=== PATIENT | female | born 1960 | race Caucasian/White ===

== ENCOUNTER 2016-10-09 13:46 | Emergency (ER) | payer OTHER ==
[~2016-10-09] VITALS: Ht 170.2 cm; Wt 99.0 kg
[2016-10-09] MEDS ORDERED: RIZA10TA2 (13:55)
[2016-10-09] MEDS ORDERED: BUSP15TA47 (13:55)
[2016-10-09] MEDS ORDERED: TOPI50TA9 (13:55)
[2016-10-09] MEDS ORDERED: CITA40TA4 (13:55)
[2016-10-09] MEDS ORDERED: ONDA4TAB6 (13:55)
[2016-10-09] MEDS ORDERED: MAGN250T7 PO (13:55)
[2016-10-09] MEDS ORDERED: diphenhydrAMINE INJ 50MG/ML VIAL (J1200) IV STA (14:02)
[2016-10-09] MEDS ORDERED: PROMETHAZINE INJ 25 MG/ML VIAL (J2550) IV ONE (14:15)
[2016-10-09] MEDS ORDERED: KETOROLAC 30 MG/ML VIAL (J1885) IV ONE (14:15)
[2016-10-09] MEDS ORDERED: NS 1,000 ML IV ONE (14:15)
[2016-10-09 16:08] VITALS: BP 96/51
== END 2016-10-09 16:10 | disposition home or self-care (01) ==
LOC: M ED 13:46
DX: G43.909 Migraine, unspecified, not intractable, without status migrainosus (principal); F41.9 Anxiety disorder, unspecified; F32.9 Major depressive disorder, single episode, unspecified; Z79.899 Other long term (current) drug therapy; Z88.0 Allergy status to penicillin; Z88.2 Allergy status to sulfonamides
CPT/HCPCS: 96374; 96375; 99282; J1200; J1885

== ENCOUNTER 2016-12-02 18:14 | Emergency (ER) | payer OTHER ==
[~2016-12-02] VITALS: Ht 170.2 cm; Wt 98.2 kg
[2016-12-02 18:14] VITALS: BP 131/79
[~2016-12-02 18:14] MED LIST: BUSP15TA47; CITA40TA4; MAGN250T7 PO; ONDA4TAB6; RIZA10TA2; TOPI50TA9
== END 2016-12-02 18:33 | disposition left against medical advice (07) ==
LOC: M ED 18:14
DX: R51 Headache (principal); Z53.21 Procedure and treatment not carried out due to patient leaving prior to being seen by health care provider

== ENCOUNTER → 2017-12-28 | Outpatient (CLI) | payer OTHER ==
[2017-12-28 13:01] LABS: ERYTHROCYTE SEDIMENTATION RATE 25 mm/hr (0-30)
[2017-12-28 13:04] LABS: ALBUMIN 3.7 GM/DL (3.2-5.2); ALBUMIN/GLOBULIN RATIO 1.16 (1.00-1.93); ALKALINE PHOSPHATASE 105 U/L (45-117); ALT/SGPT 19 U/L (12-78); ANION GAP 5 MEQ/L (8-16); AST/SGOT 13 U/L (7-37); BILIRUBIN,TOTAL 0.2 MG/DL (0.2-1.0); BLOOD UREA NITROGEN 21 MG/DL (7-18); CALCIUM LEVEL 8.6 MG/DL (8.5-10.1); CARBON DIOXIDE LEVEL 28 MEQ/L (21-32); CHLORIDE LEVEL 109 MEQ/L (98-107); CREATININE FOR GFR 0.78 MG/DL (0.55-1.30); GLOMERULAR FILTRATION RATE > 60.0 (>51); GLUCOSE, FASTING 94 MG/DL (70-100); POTASSIUM SERUM 4.1 MEQ/L (3.5-5.1); RHEUMATOID FACTOR QUANT < 10.0 IU/ML (<15.0); SODIUM LEVEL 142 MEQ/L (136-145); TOTAL PROTEIN 6.9 GM/DL (6.4-8.2)
[2017-12-28 13:10] LABS: TOTAL 25(OH) VITAMIN D 13.9 NG/ML (30.0-100.0)
[2017-12-30 14:27] LABS: ANTINUCLEAR ANTIBODIES DIRECT Negative (Negative); TOPIRAMATE LEVEL 3.9 ug/mL (2.0-25.0)
== END ==
LOC: M LAB 11:55
DX: R51 Headache (principal)
CPT/HCPCS: 80053

== ENCOUNTER → 2018-01-12 | Outpatient (REF) | payer OTHER | LOC: M LAB REF 01-13 12:00 | DX: R31.9 Hematuria, unspecified (principal) ==

== ENCOUNTER 2019-04-05 10:48 | Emergency (ER) | payer OTHER ==
[~2019-04-05] VITALS: Ht 172.7 cm; Wt 101.9 kg
[2019-04-05] MEDS ORDERED: CYCL10TA PO (11:34)
[2019-04-05] MEDS ORDERED: PARO20TA3 OR (11:34)
[2019-04-05] MEDS ORDERED: ESTR0.1C5 TOP (11:34)
[2019-04-05 12:14] LABS: BASO % 0.6 % (0.0-1.0); EOS # 0.1 10^3/uL (0.0-0.5); EOS % 0.8 % (0.0-3.0); HEMATOCRIT 42.5 % (36.0-47.0); HEMOGLOBIN 13.2 g/dl (12.0-15.5); LYMPH # 1.8 10^3/uL (1.5-5.0); MEAN CORPUSCULAR HEMOGLOBIN 27.7 pg (27.0-33.0); MEAN CORPUSCULAR HGB CONC 31.1 g/dl (32.0-36.5); MEAN CORPUSCULAR VOLUME 89.3 fl (80.0-96.0); MONO # 0.4 10^3/uL (0.0-0.8); MONO % 6.7 % (0.0-5.0); NEUTROPHILS # 3.9 10^3/uL (1.5-8.5); NEUTROPHILS % 62.4 % (36.0-66.0); PLATELET COUNT, AUTOMATED 216 10^3/uL (150-450); RED BLOOD COUNT 4.76 10^6/uL (4.00-5.40); WHITE BLOOD COUNT 6.3 10^3/uL (4.0-10.0)
[2019-04-05 12:43] LABS: BLOOD UREA NITROGEN 10 MG/DL (7-18); CALCIUM LEVEL 8.6 MG/DL (8.5-10.1); CARBON DIOXIDE LEVEL 28 MEQ/L (21-32); CHLORIDE LEVEL 108 MEQ/L (98-107); CREATININE FOR GFR 0.64 MG/DL (0.55-1.30); GLOMERULAR FILTRATION RATE > 60.0 (>51); GLUCOSE, FASTING 111 MG/DL (70-100); MAGNESIUM LEVEL 2.3 MG/DL (1.8-2.4); SODIUM LEVEL 141 MEQ/L (136-145)
[2019-04-05 13:42] LABS: CK-MB VALUE MASS 1.3 NG/ML (<3.6); CPK CREATINE PHOSPHOKINASE 92 U/L (26-192); MB/CK RELATIVE INDEX 1.41 (< OR =4); TOTAL PROTEIN 6.6 GM/DL (6.4-8.2); TROPONIN I < 0.02 NG/ML (< 0.10)
[2019-04-05 13:49] LABS: VITAMIN B12 LEVEL 306 PG/ML (247-911)
[2019-04-05 13:59] LABS: AMPHETAMINES LEVEL URINE NEGATIVE (NEGATIVE); BARBITURATES URINE NEGATIVE (NEGATIVE); BENZODIAZEPINES URINE NEGATIVE (NEGATIVE); CANNABINOIDS URINE NEGATIVE (NEGATIVE); COCAINE METABOLITE URINE NEGATIVE (NEGATIVE); METHADONE URINE NEGATIVE (NEGATIVE); OPIATES URINE NEGATIVE (NEGATIVE); PHENCYCLIDINE URINE NEGATIVE (NEGATIVE)
[2019-04-05] MEDS ORDERED: NEUR100C PO (14:40)
--- NOTE | 2019-04-05 15:39 | REP ---
CT of the brain without IV contrast: There is a large focal area of edema involving the left temporal parietal lobe and a smaller focal area of edema posteriorly in the left frontal lobe. Neoplasm is a primary consideration. I would recommend follow-up MRI without and with gadolinium if the patient's renal function will permit. There is no hemorrhage. The cortical stripe is unremarkable. There is mild diffuse volume loss. The visualized paranasal sinuses and mastoid air cells are clear. Impression: Focal edema in the left temporal parietal area a second small focal zone of edema posteriorly in the left upper lobe. Neoplasm is a primary diagnostic concern. Recommend follow-up MRI without and with IV contrast, dislocations renal function will permit IV contrast. Electronically Signed by Jeb Catherine MD 04/05/2019 03:31 P
[2019-04-05 15:53] LABS: THYROID STIMULATING HORMONE 0.872 uIU/ML (0.358-3.740)
[2019-04-05] MEDS ORDERED: KEPP1TAB PO (19:03)
[2019-04-05 19:33] VITALS: BP 140/70
--- NOTE | 2019-04-07 08:06 | ED PDOC ---
Post-Departure Follow-Up ct head- faxed to Keyona Watson MD Apr 07, 2019 08:06
[2019-04-09 10:10] LABS: VITAMIN B1 LEVEL WHOLE BLOOD 102.3 nmol/L (66.5-200.0)
== END 2019-04-05 19:25 | disposition home or self-care (01) ==
LOC: M ED 10:48
DX: R56.9 Unspecified convulsions (principal); G43.909 Migraine, unspecified, not intractable, without status migrainosus; F41.9 Anxiety disorder, unspecified; F32.9 Major depressive disorder, single episode, unspecified; D32.9 Benign neoplasm of meninges, unspecified; M50.30 Other cervical disc degeneration, unspecified cervical region; Z92.3 Personal history of irradiation; Z79.899 Other long term (current) drug therapy; Z88.0 Allergy status to penicillin; Z88.8 Allergy status to other drugs, medicaments and biological substances; Z88.2 Allergy status to sulfonamides

== ENCOUNTER → 2019-12-28 | Outpatient (CLI) | payer OTHER ==
[~2019-12-28] MED LIST changes: +CYCL-707 PO; +ESTR0.1C5 TOP; +KEPP1TAB PO; +NEUR100C PO; +PARO20TA3 OR
--- NOTE | 2019-12-28 16:05 | REP ---
INDICATION: WRIST,HAND,KNEE ELBOW PAIN. COMPARISON: None. TECHNIQUE: Four views of each hand. FINDINGS: Left hand: There are minor degenerative changes at the 1st CMC joint, and both the IP and MCP joints. Greatest narrowing at the DIP joint of the 5th finger with spur formation also at most DIP joints. No definite erosions. No fracture or focal bone lesion. No abnormal soft tissue calcification. Carpal bones and the joint spaces were preserved. No abnormal soft tissue swelling. Right hand: There are minor degenerative changes at the 1st CMC joint and the IP and MCP joints as well. Minor spurring is present at some IP joints. No erosion, abnormal soft tissue calcification, fracture, subluxation or other acute finding. Carpal bones show no narrowing of their joint spaces. There is a very mild ulna minus variant on the right. IMPRESSION: 1. Mild degenerative changes of the 1st CMC, IP joints and sign that the MCP joints both hands. No erosion, fracture or destructive lesion. 2. Mild ulna minus variant on the right. <Electronically signed by Guillaume Toledo > 12/28/19 [id number]
--- NOTE | 2019-12-28 16:14 | REP ---
INDICATION: WRIST,HAND,ELBOW KNEE PAIN. COMPARISON: None. TECHNIQUE: Four views of each wrist FINDINGS: Right wrist: There is a mild ulna minus variant. There is minor degenerative change at the 1st CMC joint. The other carpal joint spaces were intact in the distal radius and ulna are intact. No erosion, fracture or avulsion of the carpal bones. There may be some minimal soft tissue swelling over the dorsal aspect of the wrist on the lateral view only. Minimal ulna minus variant. Left wrist: There is minor degenerative change at the 1st CMC joint. The other carpal joint spaces are intact the distal radius and ulna are intact. There is minor soft tissue swelling about the dorsal aspect of the wrist and distal forearm on the lateral view. There is some minimal soft tissue swelling over the dorsal aspect of the wrist and distal forearm on the lateral view. IMPRESSION: 1. Minor degenerative change right wrist at sign that the 1st CMC joint without carpal joint destruction or narrowing otherwise. There is no fracture or avulsion. Minimal soft tissue swelling. Minimal ulna minus variant. 2. Minor degenerative change at the left wrist at the CMC joint without carpal joint destruction or narrowing otherwise. There is no fracture or avulsion. Minimal soft tissue swelling. <Electronically signed by Guillaume Toledo > 12/28/19 [id number]
--- NOTE | 2019-12-28 16:18 | REP ---
INDICATION: WRIST,HAND,ELBOW KNEE. COMPARISON: None. TECHNIQUE: Four views of each elbow. FINDINGS: Left elbow: There is no abnormal soft tissue calcification about the elbow. I see no joint effusion, spurring, loose body or focal lesion. There is no fracture or focal bony abnormality. Right elbow: There is no abnormal soft tissue calcification about the elbow. I see no joint effusion or spur at the triceps insertion. Tiny spur at the coronoid process of the ulna on the lateral view only. IMPRESSION: 1. The left elbow unremarkable. 2. Minimal spurring at the coronoid process of the right ulna on the lateral view only. No joint effusion, other spurs or focal lesion. <Electronically signed by Guillaume Toledo > 12/28/19 0621
--- NOTE | 2019-12-28 16:26 | REP ---
INDICATION: WRIST,HAND,ELBOW KNEE. COMPARISON: None. TECHNIQUE: Five views of each knee. FINDINGS: Right knee: There are minor degenerative changes with spurring at the patellofemoral joint with minimal joint space narrowing of the lateral facet. The medial and lateral compartments without narrowing. No definite loose body or osteochondral defect. There is a small fabella evident on the lateral view. Spurring at the quadriceps insertion. I suspect a small suprapatellar effusion may be present. There is no fracture or focal bone lesion visible otherwise Left knee: There are also minor degenerative changes of the patellofemoral joint with slight narrowing of the lateral patellofemoral joint margins. Small spurring a patellar margins and quadriceps insertion. Nose definite suprapatellar effusion. The medial and lateral compartments without any significant narrowing or erosions. Tiny spurs at the tibial spines. No fracture or focal bone lesion. There are no other significant findings. IMPRESSION: Right knee with some degenerative changes and small suprapatellar effusion suspected. No fracture, avulsion, OCD or other acute finding. Slight narrowing of the patellofemoral joint laterally. Left knee with degenerative changes of the patellofemoral joint and spurring at the tibial spines. Mild narrowing of the lateral patellofemoral compartment with the medial and lateral compartments maintained. No focal bone lesion or left effusion. <Electronically signed by Guillaume Toledo > 12/28/19 [id number]
== END ==
LOC: M WUC 13:24
PROVIDERS: ATTEND Physician Assistant Medical
DX: M17.0 Bilateral primary osteoarthritis of knee (principal); M19.031 Primary osteoarthritis, right wrist; M19.032 Primary osteoarthritis, left wrist; M19.041 Primary osteoarthritis, right hand; M19.042 Primary osteoarthritis, left hand; M25.521 Pain in right elbow; M25.522 Pain in left elbow; M25.549 Pain in joints of unspecified hand; M25.561 Pain in right knee; M25.562 Pain in left knee; M25.531 Pain in right wrist; M25.532 Pain in left wrist

== ENCOUNTER → 2021-08-05 | Outpatient (REF) | payer OTHER ==
[~2021-08-05] MED LIST changes: -CITA40TA4; +CITA40TA7
== END ==
LOC: M SFHCDERM 09:31
PROVIDERS: ATTEND Nurse Practitioner Family
DX: L82.0 Inflamed seborrheic keratosis (principal)

== ENCOUNTER → 2021-09-30 | Outpatient (CLI) | payer OTHER ==
[2021-09-30 11:15] LABS: C REACTIVE PROTEIN QUANTITATIV 1.04 MG/DL (0.00-0.30); RHEUMATOID FACTOR QUANT < 10.0 IU/ML (<15.0)
== END ==
LOC: M WUC 08:35
PROVIDERS: ATTEND Physician Assistant
DX: M19.042 Primary osteoarthritis, left hand (principal)

== ENCOUNTER → 2021-10-22 | Outpatient (REF) | payer OTHER ==
[2021-10-22 12:10] LABS: APPEARANCE, URINE MANUAL CLEAR (CLEAR); COLOR, URINE MANUAL YELLOW (YELLOW)
[2021-10-22 12:11] LABS: BILIRUBIN, URINE MANUAL NEGATIVE (NEGATIVE); BLOOD URINE MANUAL NEGATIVE (NEGATIVE); GLUCOSE, URINE (UA) MANUAL NEGATIVE (NEGATIVE); KETONE, URINE MANUAL NEGATIVE (NEGATIVE); LEUKOCYTE ESTERASE, URINE MAN NEGATIVE (NEGATIVE); NITRITE, URINE MANUAL NEGATIVE (NEGATIVE); PROTEIN, URINE MANUAL NEGATIVE (NEGATIVE); UROBILINOGEN, URINE MANUAL NORMAL (NORMAL)
== END ==
LOC: M SMT 10:02
PROVIDERS: ATTEND Physician Assistant
DX: R31.21 Asymptomatic microscopic hematuria (principal)

== ENCOUNTER → 2021-11-03 | Outpatient (CLI) | payer OTHER ==
[~2021-11-03] MED LIST changes: +ISOVUE-370 76% 100ML VIAL As Ordered ONE
== END ==
LOC: M RAD 12:46
PROVIDERS: ATTEND Physician Assistant
DX: R31.21 Asymptomatic microscopic hematuria (principal); N20.0 Calculus of kidney
CPT/HCPCS: 74178; Q9967

== ENCOUNTER → 2021-11-10 | Outpatient (CLI) | payer OTHER ==
[~2021-11-10] MED LIST changes: -ISOVUE-370 76% 100ML VIAL As Ordered ONE
[2021-11-10 18:44] LABS: C REACTIVE PROTEIN QUANTITATIV 0.78 MG/DL (0.00-0.30); RHEUMATOID FACTOR QUANT < 10.0 IU/ML (<15.0)
[2021-11-12 13:09] LABS: ANTINUCLEAR ANTIBODIES DIRECT Negative (Negative)
== END ==
LOC: M WUC 11:23
PROVIDERS: ATTEND Orthopaedic Surgery
DX: M54.50 Low back pain, unspecified (principal)

== ENCOUNTER → 2023-01-25 | Outpatient (CLI) | payer OTHER ==
[~2023-01-25] MED LIST changes: +TOPI-254; -TOPI50TA9
[2023-01-25 12:07] LABS: BASO # 0.1 10^3/uL (0.0-0.2); BASO % 0.8 % (0.0-1.0); EOS # 0.2 10^3/uL (0.0-0.5); EOS % 2.6 % (0.0-3.0); HEMATOCRIT 40.6 % (36.0-47.0); LYMPH # 2.8 10^3/uL (1.5-5.0); LYMPH % 42.2 % (24.0-44.0); MEAN CORPUSCULAR HEMOGLOBIN 28.7 pg (27.0-33.0); MEAN CORPUSCULAR VOLUME 89.6 fl (80.0-96.0); MONO # 0.5 10^3/uL (0.0-0.8); MONO % 7.5 % (2.0-8.0); NEUTROPHILS # 3.1 10^3/uL (1.5-8.5); NEUTROPHILS % 46.7 % (36.0-66.0); PLATELET COUNT, AUTOMATED 229 10^3/uL (150-450); RED BLOOD COUNT 4.53 10^6/uL (4.00-5.40); WHITE BLOOD COUNT 6.7 10^3/uL (4.0-10.0)
[2023-01-25 12:50] LABS: ALBUMIN 3.3 G/DL (3.2-5.2); ALKALINE PHOSPHATASE 110 U/L (46-116); ALT/SGPT 13 U/L (7.0-40); AST/SGOT 16 U/L (<34); BILIRUBIN,TOTAL 0.3 MG/DL (0.3-1.2); BLOOD UREA NITROGEN 16 MG/DL (9-23); CALCIUM LEVEL 8.5 MG/DL (8.3-10.6); CARBON DIOXIDE LEVEL 31 MMOL/L (20-31); CHLORIDE LEVEL 105 MMOL/L (98-107); CHOLESTEROL LEVEL 221 MG/DL (<200); CHOLESTEROL RISK RATIO 3.85 (<5); CREATININE FOR GFR 0.68 MG/DL (0.55-1.30); GLOMERULAR FILTRATION RATE > 60.0 (>45); GLUCOSE, FASTING 102 MG/DL (74-106); HDL CHOLESTEROL 57.4 MG/DL (>40); LDL CHOLESTEROL 143.6 MG/DL (<100); NON-HDL-C 163.6 MG/DL; POTASSIUM SERUM 4.4 MMOL/L (3.5-5.1); SODIUM LEVEL 140 MMOL/L (136-145); THYROID STIMULATING HORMONE 2.255 uIU/ML (0.55-4.78); TOTAL PROTEIN 6.3 G/DL (5.7-8.2); TRIGLYCERIDES LEVEL 100 MG/DL (<150)
[2023-01-25 13:01] LABS: HEMOGLOBIN A1c 5.5 % (4.0-6.0)
== END ==
LOC: M WUC 08:18
PROVIDERS: ATTEND Registered Nurse
DX: D32.0 Benign neoplasm of cerebral meninges (principal); E78.00 Pure hypercholesterolemia, unspecified; E55.9 Vitamin D deficiency, unspecified; Z79.899 Other long term (current) drug therapy

== ENCOUNTER → 2025-02-08 | Outpatient (CLI) | payer OTHER ==
[~2025-02-08] MED LIST changes: +ONDA-282; -ONDA4TAB6; +TOPI-21; -TOPI-254
== END ==
LOC: M WUC 11:31
PROVIDERS: ATTEND Registered Nurse
DX: M79.672 Pain in left foot (principal); M20.12 Hallux valgus (acquired), left foot